=== PATIENT | male | born 1965 | race Caucasian/White ===

== ENCOUNTER 2016-07-23 13:05 | Emergency (ER) | payer OTHER ==
[~2016-07-23] VITALS: Ht 177.8 cm; Wt 100.8 kg
[2016-07-23 14:32] VITALS: BP 142/102
== END 2016-07-23 14:44 | disposition home or self-care (01) ==
LOC: ED 14:38
DX: S43.422A Sprain of left rotator cuff capsule, initial encounter (principal); I10 Essential (primary) hypertension; F10.129 Alcohol abuse with intoxication, unspecified; X50.9XXA Other and unspecified overexertion or strenuous movements or postures, initial encounter; Y93.89 Activity, other specified; Y92.89 Other specified places as the place of occurrence of the external cause; Y99.8 Other external cause status; Y90.9 Presence of alcohol in blood, level not specified
CPT/HCPCS: 99284